=== PATIENT | female | born 1940 | race Caucasian/White ===

== ENCOUNTER 2018-04-16 08:59 | Day surgery (SDC) | payer MEDICARE, BC, MEDICAID ==
[2018-04-16] VITALS (8 sets, daily range): BP systolic 89–109; BP diastolic 35–70; PULSE 79–89; TEMP 97.2–98.1
[~2018-04-16] VITALS: Ht 162.6 cm; Wt 153.6 kg
[~2018-04-16 08:59] MED LIST: ASPIR-LOW81 MG PO; ASPIR-LOX325 MG PO; ASPIRIN E.C. 8181 MG PO; BENADRYL25 M1 PO; BENADRYL25 M2 PO; BYSTOLIC PO; CALCIUM + D 6001 TA1 PO; CENTRUM SILVER1 TA1 PO; CENTRUM1 TAB PO; COENZYME Q-1010 MG PO; COUMADIN 22.5 MG/TAB PO; COUMADIN 3MG3 MG/TAB PO; COUMADIN 5MG5 MG/TAB PO; COUMADIN 6MG6 MG/TAB PO; COUMADIN PO; COUMADIN4 MG PO; CRESTOR10 MG PO; FOSAMAX 70MG TA70 MG PO; HYDROCODONE/APAP PO; LACTULOSE SYR 10/15 PO; LASIX 80MG TABL80 MG PO; LASIX40 MG PO; LEVOTHROID0.15 MG PO; LEVOTHYROXINE0.1 MG PO; LEVOXYL0.15 MG PO; LIBRIUM 10M10 MG/CAP PO; LIBRIUM 25M25 MG/CAP PO; LISINOPRIL PO; LOPID 600M600 MG/TAB PO; LORTAB 7.5/5001 TAB PO; LOVAZA1 GM PO; METOPROLOL TART25 MG PO; MIRALAX PA17 GM/Dose PO; MOTRIN 400400 MG/TAB PO; NIFEDIPINE ER60 MG PO; OMEGA 31000 MG PO; OS-CAL 500 + D1 TAB PO; OSCAL 500 TAB500 MG PO; OSCAL W/VIT D250 MG PO; OXYCODONE HCL15 MG PO; PHENERGAN 25 TA25 MG PO; PHENERGAN25 MG RC; PRAVACHOL 40MG40 MG PO; PRAVACHOL10 MG PO; PRINIVIL10 MG PO; PROMETHAZINE HC25 M2 PO; RICOLA COUGH DROPS; ROXICODONE 55 MG/TAB PO; ROXICODONE30 MG PO; SENOKOT S 50 MG1 TAB PO; STOOL SOFTENER100 M2 PO; STOOL SOFTENER100 MG PO; TOPROL XL 25MG25 MG PO; TYLENOL 500MG500 MG PO; UNABLE; UNISOM SLEEPGEL50 MG PO; VITAMIN B12 PO; VITAMIN C500 MG PO; VITAMIN D PO; VITAMIN D31000 IU PO; VITAMIN E200 I1 PO; XYLOCAINE 5% TP; ZESTRIL 20MG TA20 MG PO
[2018-04-16] MEDS ORDERED: COUMADIN4 MG PO (09:37)
[2018-04-16] MEDS ORDERED: NATURAL VITAM1000 MG PO (09:38)
[2018-04-16] MEDS ORDERED: COUMADIN 5MG5 MG/TAB PO (09:43)
[2018-04-16] MEDS ORDERED: PRINIVIL10 MG PO (09:46)
[2018-04-16] MEDS ORDERED: VITAMIN B-1000 MCG/T PO (09:46)
[2018-04-16] MEDS ORDERED: PRAVACHOL 40MG40 MG PO (09:50)
[2018-04-16] MEDS ORDERED: MIRALAX PA17 GM/Dose PO (09:50)
[2018-04-16] MEDS ORDERED: PREDNISONE20 MG PO (09:52)
[2018-04-16] MEDS ORDERED: SYNTHROID 0.10.15 MG PO (09:52)
[2018-04-16] MEDS ORDERED: CLARITIN 1010 MG/TAB PO (09:57)
[2018-04-16] MEDS ORDERED: LASIX 20MG TABL20 MG PO (09:58)
[2018-04-16] MEDS ORDERED: PROBIOTIC GOLD1 EACH PO (09:58)
[2018-04-16] MEDS ORDERED: KLOR-CON SPRIN10 MEQ PO (09:59)
[2018-04-16] MEDS ORDERED: TOPROL XL 50MG50 MG PO (09:59)
[2018-04-16] MEDS ORDERED: CEPHALEXIN500 M1 PO (10:00)
[2018-04-16] MEDS ORDERED: ALBUTEROL0.83 MG/ML IH (10:01)
[2018-04-16] MEDS ORDERED: MAALOX ADVANCE148 ML PO (10:02)
[2018-04-16] MEDS ORDERED: LIBRIUM 5MG5 MG/CAP PO (10:03)
[2018-04-16] MEDS ORDERED: COUMADIN 6MG6 MG/TAB PO (10:04)
[2018-04-16] MEDS ORDERED: FENTANYL 25 MCG TD (10:06)
[2018-04-16] MEDS ORDERED: LANTUS SOLOS100 U/ML SQ ×2 (10:07→10:10)
[2018-04-16] MEDS ORDERED: DILAUDID 2MG TAB2 MG PO (10:09)
[2018-04-16] MEDS ORDERED: HUMALOG PEN100 U/ML SQ (10:09)
== END 2018-04-16 15:50 ==
LOC: SDCO 08:59
DX: I10 Essential (primary) hypertension (principal); E66.01 Morbid (severe) obesity due to excess calories; Z68.43 Body mass index [BMI] 50.0-59.9, adult; G89.4 Chronic pain syndrome; E11.9 Type 2 diabetes mellitus without complications; Z79.4 Long term (current) use of insulin; Z85.51 Personal history of malignant neoplasm of bladder; I48.91 Unspecified atrial fibrillation; Z79.01 Long term (current) use of anticoagulants; E03.9 Hypothyroidism, unspecified; E78.5 Hyperlipidemia, unspecified; Z79.899 Other long term (current) drug therapy; M81.0 Age-related osteoporosis without current pathological fracture
CPT/HCPCS: C1769; J0330; J0690; J2405; J2704; J3010; J7030